=== PATIENT | male | born 1990 | race Caucasian/White ===

== ENCOUNTER 2020-07-18 17:05 | Observation (INO) | payer BC ==
[~2020-07-18] VITALS: Ht 193 cm; Wt 97.5 kg
[2020-07-18 19:44] LABS: HEMOGLOBIN 16.6 gm/dl (14.0-17.5); RED BLOOD COUNT 5.59 M/UL (4.20-5.50); WHITE BLOOD COUNT 13.4 K/UL (4.5-11.0)
[2020-07-18 20:07] LABS: BUN/CREATININE RATIO 13 (0-10)
[2020-07-18] MEDS ORDERED: DIABETA 5 MG TAB5 MG PO (21:47)
[2020-07-18] MEDS ORDERED: JARDIANCE25 MG PO (21:47)
[2020-07-18] MEDS ORDERED: LISINOPRIL10 MG PO (21:47)
[2020-07-20] MEDS ORDERED: HYDROCODON-ACE1 EAC2 PO (11:13)
[2020-07-20] MEDS ORDERED: COLACE100 MG PO (11:13)
== END 2020-07-20 16:50 | disposition home or self-care (01) ==
LOC: ER1 17:05 → MED SURG 4 21:15 → CDU 21:15 → MED SURG 4 21:15
PROVIDERS: Family Medicine; ADMIT Surgery
PROC: 0DTJ4ZZ Resection of Appendix, Percutaneous Endoscopic Approach (ICD-10-PCS; principal; 2020-07-19 16:15)
DX: K35.33 Acute appendicitis with perforation, localized peritonitis, and gangrene, with abscess (principal); E11.9 Type 2 diabetes mellitus without complications; I10 Essential (primary) hypertension; F17.200 Nicotine dependence, unspecified, uncomplicated; Z79.899 Other long term (current) drug therapy; Z88.0 Allergy status to penicillin; Z88.2 Allergy status to sulfonamides; Z20.822 Contact with and (suspected) exposure to COVID-19
CPT/HCPCS: 80053; 81001; 82962; 83690; 85025; 96365; 96372; 96374; 96375; 96376; 99285; G0378; J1335; J1885; J2250; J2405; J2704; J2710; J2795; J3010; J3480; J7030; J7120; Q9967; U0002